=== PATIENT | female | born 1965 | race Caucasian/White ===

== ENCOUNTER 2018-06-20 14:15 | Inpatient (IN) | payer OTHER, MEDICAID ==
[~2018-06-20] VITALS: Ht 160 cm; Wt 67.0 kg
[2018-06-20 14:30] VITALS: BP_SYST 161
[2018-06-20 15:27] LABS: BASOPHILS # (AUTO) 0.1 K/uL (0.0-0.2); BASOPHILS % (AUTO) 0.8 % (0.0-2.0); EOSINOPHILS # (AUTO) 0.8 K/uL (0.0-0.4); EOSINOPHILS % (AUTO) 6.6 % (0.0-4.0); HEMATOCRIT 41.8 % (36-48); HEMOGLOBIN 13.8 g/dL (12.0-16.0); LYMPHOCYTES # (AUTO) 1.6 K/uL (1.0-5.5); LYMPHOCYTES % (AUTO) 13.7 % (20.5-51.5); MEAN CORPUSCULAR HEMOGLOBIN 31 pg (27-31); MEAN CORPUSCULAR HGB CONC 33 % (32-36); MEAN CORPUSCULAR VOLUME 92 fL (79.0-98.0); MONOCYTES # (AUTO) 0.6 K/uL (0.0-1.0); MONOCYTES % (AUTO) 5.2 % (1.7-9.3); NEUTROPHILS # (AUTO) 8.8 K/uL (1.8-7.7); NEUTROPHILS % (AUTO) 73.7 % (40.0-70.0); PLATELET COUNT (AUTO) 392 K/uL (130-430); RED BLOOD CELL COUNT(AUTO) 4.53 MIL/uL (4.2-6.2); RED CELL DISTRIBUTION WIDTH 14.8 % (9.0-15.0); WHITE BLOOD COUNT (AUTO) 11.9 K/uL (4.8-10.8)
[2018-06-20 15:30] LABS: CALCIUM 9.8 mg/dL (8.4-11.0); CREATININE 0.8 mg/dL (0.55-1.30); POTASSIUM 3.4 mmol/L (3.5-5.1)
[2018-06-20 15:34] LABS: ALBUMIN 3.9 g/dL (3.4-4.8); TOTAL BILIRUBIN 0.3 mg/dL (0.0-1.0)
[2018-06-20] MEDS ORDERED: PERMETHRIN 60 GM TOPICAL CREAM (ELIMITE) TP ONE (16:30)
[2018-06-20] MEDS ORDERED: DEXTROSE 50% JECT 50 ML DISP.SYRIN IVP PRN (19:00)
[2018-06-20 20:02] VITALS: BP_SYST 162
[2018-06-21 00:36] VITALS: BP_SYST 160
[2018-06-21 10:00] VITALS: BP_SYST 153
[2018-06-21] MEDS ORDERED: COMMUNICATION ORDER XX ONE (10:30)
[2018-06-21] MEDS ORDERED: PYRETHRINS TP ONE (11:00)
[2018-06-21] MEDS ORDERED: PIPERONYL BUTOXIDE TP ONE (11:00)
[2018-06-21 12:00] VITALS: BP_SYST 154
[2018-06-21 16:00] VITALS: BP_SYST 165
[2018-06-21 19:55] VITALS: BP_SYST 156
[2018-06-22 00:55] VITALS: BP_SYST 169
[2018-06-22] MEDS ORDERED: COMMUNICATION ORDER XX ONE (08:30)
[2018-06-22] MEDS ORDERED: PIPERONYL BUTOXIDE TP ONE (08:45)
[2018-06-22] MEDS ORDERED: PYRETHRINS TP ONE (08:45)
[2018-06-22 09:30] VITALS: BP_SYST 152
[2018-06-22 11:29] VITALS: BP_SYST 164
[2018-06-22] MEDS ORDERED: IVERMECTIN 3 MG TABLET PO ONE (11:30)
[2018-06-22] MEDS ORDERED: PERMETHRIN 60 GM TOPICAL CREAM (ELIMITE) TP ONE (11:30)
[2018-06-22 16:00] VITALS: BP_SYST 155
[2018-06-22 20:18] VITALS: BP_SYST 158
[2018-06-23 07:58] VITALS: BP_SYST 161
[2018-06-23] MEDS ORDERED: ACETAMINOPHEN 325 MG TABLET PO PRN (08:15)
[2018-06-23] MEDS ORDERED: ONDANSETRON HCL 4 MG/2 ML VIAL IVP PRN (08:15)
[2018-06-23] MEDS: ARIPiprazole 5 MG TAB PO SCH (09:10)
[2018-06-23] MEDS: DIPHENHYDRAMINE HCL 12.5 MG/5 ML UDC PO PRN ×2 (09:10→16:46)
[2018-06-23 12:15] VITALS: BP_SYST 153
[2018-06-23 16:00] VITALS: BP_SYST 157
[2018-06-23] MEDS ORDERED: cloNIDine HCL 0.1 MG TABLET PO PRN (17:00)
[2018-06-23] MEDS ORDERED: LISINOPRIL 10 MG TABLET (PRINIVIL) PO ONE (17:00)
[2018-06-23 20:59] VITALS: BP_SYST 157
[2018-06-24] MEDS: INSULIN REGULAR, HUMAN 100 UNITS/ML, 10 ML VIAL (novoLIN R) SUBCUT PRN (00:56)
[2018-06-24 01:10] VITALS: BP_SYST 150
[2018-06-24] MEDS: DIPHENHYDRAMINE HCL 12.5 MG/5 ML UDC PO PRN (03:29)
[2018-06-24 08:00] VITALS: BP_SYST 155
[2018-06-24] MEDS: ARIPiprazole 5 MG TAB PO SCH (09:25)
[2018-06-24] MEDS: LISINOPRIL 10 MG TABLET (PRINIVIL) PO SCH (09:26)
[2018-06-24 11:32] VITALS: BP_SYST 136
[2018-06-24] MEDS ORDERED: DIPH-934 PO (12:51)
[2018-06-24] MEDS ORDERED: CAT.1 PO (12:51)
[2018-06-24] MEDS ORDERED: LISI10TA5 PO (12:51)
[2018-06-24] MEDS ORDERED: ARIP5TAB10 PO (12:51)
[2018-06-24] MEDS ORDERED: SSREG SUBCUT (12:51)
[2018-06-24] MEDS ORDERED: GLUXR500 PO (12:53)
[2018-06-24 15:24] VITALS: BP_SYST 148
[2018-06-24 20:00] VITALS: BP_SYST 137
[2018-06-25 06:41] LABS: CALCIUM 9.4 mg/dL (8.4-11.0); CREATININE 0.75 mg/dL (0.55-1.30); POTASSIUM 3.7 mmol/L (3.5-5.1)
[2018-06-25 06:53] LABS: BASOPHILS # (AUTO) 0.1 K/uL (0.0-0.2); BASOPHILS % (AUTO) 0.8 % (0.0-2.0); EOSINOPHILS # (AUTO) 0.7 K/uL (0.0-0.4); EOSINOPHILS % (AUTO) 7.4 % (0.0-4.0); HEMATOCRIT 37.9 % (36-48); HEMOGLOBIN 13.1 g/dL (12.0-16.0); LYMPHOCYTES # (AUTO) 2.5 K/uL (1.0-5.5); LYMPHOCYTES % (AUTO) 24.9 % (20.5-51.5); MEAN CORPUSCULAR HEMOGLOBIN 32 pg (27-31); MEAN CORPUSCULAR HGB CONC 35 % (32-36); MEAN CORPUSCULAR VOLUME 93 fL (79.0-98.0); MONOCYTES # (AUTO) 0.6 K/uL (0.0-1.0); MONOCYTES % (AUTO) 6.1 % (1.7-9.3); NEUTROPHILS % (AUTO) 60.8 % (40.0-70.0); PLATELET COUNT (AUTO) 321 K/uL (130-430); RED BLOOD CELL COUNT(AUTO) 4.06 MIL/uL (4.2-6.2); RED CELL DISTRIBUTION WIDTH 14.4 % (9.0-15.0); WHITE BLOOD COUNT (AUTO) 9.9 K/uL (4.8-10.8)
[2018-06-25 08:00] VITALS: BP_SYST 130
[2018-06-25] MEDS: LISINOPRIL 10 MG TABLET (PRINIVIL) PO SCH (08:29)
[2018-06-25] MEDS: ARIPiprazole 5 MG TAB PO SCH (08:29)
[2018-06-25 11:35] VITALS: BP_SYST 143
[2018-06-25 15:31] VITALS: BP_SYST 135
[2018-06-25 20:00] VITALS: BP_SYST 144
[2018-06-25] MEDS: INSULIN REGULAR, HUMAN 100 UNITS/ML, 10 ML VIAL (novoLIN R) SUBCUT PRN (23:55)
[2018-06-26 00:49] VITALS: BP_SYST 143
[2018-06-26] MEDS: INSULIN REGULAR, HUMAN 100 UNITS/ML, 10 ML VIAL (novoLIN R) SUBCUT PRN ×2 (05:28→23:53)
[2018-06-26] MEDS: ARIPiprazole 5 MG TAB PO SCH (08:48)
[2018-06-26 08:49] VITALS: BP_SYST 143
[2018-06-26] MEDS: LISINOPRIL 10 MG TABLET (PRINIVIL) PO SCH (08:49)
[2018-06-26 11:23] VITALS: BP_SYST 138
[2018-06-26 15:23] VITALS: BP_SYST 130
[2018-06-26 16:24] VITALS: BP_SYST 145
[2018-06-26 20:00] VITALS: BP_SYST 138
[2018-06-27 01:40] VITALS: BP_SYST 143
[2018-06-27] MEDS: INSULIN REGULAR, HUMAN 100 UNITS/ML, 10 ML VIAL (novoLIN R) SUBCUT PRN (06:04)
[2018-06-27 09:28] VITALS: BP_SYST 145
[2018-06-27] MEDS: ARIPiprazole 5 MG TAB PO SCH (09:28)
[2018-06-27] MEDS: LISINOPRIL 10 MG TABLET (PRINIVIL) PO SCH (09:28)
[2018-06-27 11:21] VITALS: BP_SYST 135
== END 2018-06-27 11:30 | DRG 607 ==
LOC: SED 14:15 → SMU 17:08
PROVIDERS: ADMIT Internal Medicine Hospice and Palliative Medicine; ATTEND Internal Medicine Hospice and Palliative Medicine
DX: B86 Scabies (principal); F31.9 Bipolar disorder, unspecified; I10 Essential (primary) hypertension; B85.0 Pediculosis due to Pediculus humanus capitis; E11.9 Type 2 diabetes mellitus without complications; L29.9 Pruritus, unspecified; Z90.710 Acquired absence of both cervix and uterus; Z91.19 Patient's noncompliance with other medical treatment and regimen; Z88.0 Allergy status to penicillin; Z90.49 Acquired absence of other specified parts of digestive tract
CPT/HCPCS: 36415; 80048; 80053; 82962; 83036; 84443-TC; 85025; 87210-TC; 99285; J1815

== ENCOUNTER 2024-04-23 16:08 | Emergency (ER) | payer BC, MEDICAID, OTHER ==
[~2024-04-23] VITALS: Ht 154.9 cm; Wt 81.6 kg
[~2024-04-23 16:08] MED LIST: ARIP5TAB10 PO; CAT.1 PO; DIPH-934 PO; GLUXR500 PO; LISI10TA29 PO; SSREG SUBCUT
[2024-04-23 16:15] VITALS: BP_SYST 171; PULSE 90; RESP 18; TEMP 98; O2SAT 96
[2024-04-23] MEDS: cloNIDine HCL 0.1 MG TABLET PO ONE (17:05)
[2024-04-23 17:22] LABS: BASOPHILS # (AUTO) 0.1 K/uL (0.0-0.2); BASOPHILS % (AUTO) 1.1 % (0.0-2.0); EOSINOPHILS # (AUTO) 0.4 K/uL (0.0-0.4); EOSINOPHILS % (AUTO) 3.6 % (0.0-4.0); HEMATOCRIT 35.9 % (36-48); HEMOGLOBIN 11.9 g/dL (12.0-16.0); LYMPHOCYTES # (AUTO) 2.2 K/uL (1.0-5.5); LYMPHOCYTES % (AUTO) 17.9 % (20.5-51.5); MEAN CORPUSCULAR HEMOGLOBIN 28 pg (27-31); MEAN CORPUSCULAR HGB CONC 33 % (32-36); MEAN CORPUSCULAR VOLUME 86 fL (79.0-98.0); MONOCYTES # (AUTO) 0.8 K/uL (0.0-1.0); MONOCYTES % (AUTO) 6.9 % (1.7-9.3); NEUTROPHILS # (AUTO) 8.5 K/uL (1.8-7.7); NEUTROPHILS % (AUTO) 70.5 % (40.0-70.0); PLATELET COUNT (AUTO) 263 K/uL (130-430); RED BLOOD CELL COUNT(AUTO) 4.18 MIL/uL (4.2-6.2); RED CELL DISTRIBUTION WIDTH 16.4 % (9.0-15.0); WHITE BLOOD COUNT (AUTO) 12.1 K/uL (4.8-10.8)
[2024-04-23 17:27] LABS: BILIRUBIN,URINE NEGATIVE (NEGATIVE); BLOOD, URINE 1+ (NEGATIVE); CLARITY/URINE CLEAR (CLEAR); COLOR,URINE YELLOW (YELLOW); GLUCOSE,URINE 3+ (NEGATIVE); KETONES,URINE NEGATIVE (NEGATIVE); NITRITE, URINE NEGATIVE (NEGATIVE); PH,URINE 5.5 (5.0-8.0); PROTEIN URINE NEGATIVE (NEGATIVE); UROBILINOGEN,URINE 0.2 (0.2-1.0)
[2024-04-23 17:31] LABS: ALANINE AMINOTRANSFERASE 33 U/L (12-78); ALBUMIN 3.2 g/dL (3.4-4.8); ANION GAP 8 (5-15); ASPARTATE AMINOTRANSFERASE 20 U/L (10-37); BILIRUBIN,DIRECT 0.1 mg/dL (0.0-0.3); CALCIUM 9.1 mg/dL (8.4-11.0); CARBON DIOXIDE 24 mmol/L (23-29); CHLORIDE 102 mmol/L (98-107); GFR AFRICAN AMERICAN 54 mL/min (>90); GLUCOSE 264 mg/dL (74-106); POTASSIUM 4.2 mmol/L (3.5-5.1); SODIUM SERUM 134 mmol/L (136-145); TOTAL BILIRUBIN 0.3 mg/dL (0.0-1.0); TOTAL PROTEIN, SERUM 6.8 g/dL (6.4-8.3); UREA NITROGEN, BLOOD 21 mg/dL (8-21)
[2024-04-23 17:34] LABS: LEUKOCYTE ESTERASE ,URINE 2+ (NEGATIVE)
[2024-04-23 17:35] LABS: ACETAMINOPHEN < 1 ug/mL (1-30); GFR NON AFRICAN-AMERICAN 45 mL/min (>90)
[2024-04-23 17:35] LABS: BACTERIA,URINE FEW /HPF (None Seen); RBC,URINE NONE SEEN /HPF (0-3); WBC,URINE 20-50 /HPF (0-3)
[2024-04-23 17:36] LABS: MUCUS,URINE None Seen /LPF (None Seen)
[2024-04-23 17:36] LABS: ALCOHOL, BLOOD < 3 mg/dL (<10)
[2024-04-23 17:38] LABS: SALICYLATE 2 mg/dL (3-30)
[2024-04-23] MEDS ORDERED: LISI10TA29 PO (18:14)
[2024-04-23] MEDS ORDERED: LEVO750T64 PO (18:14)
[2024-04-23] MEDS: levoFLOXacin 500 MG TABLET PO ONE (18:33)
[2024-04-23 19:06] VITALS: BP_SYST 164; PULSE 81; RESP 18; TEMP 98; O2SAT 98
== END 2024-04-23 19:06 | disposition home or self-care (01) ==
LOC: SED 16:08
DX: I10 Essential (primary) hypertension (principal); N39.0 Urinary tract infection, site not specified; F41.9 Anxiety disorder, unspecified; E11.9 Type 2 diabetes mellitus without complications; Z90.49 Acquired absence of other specified parts of digestive tract; Z98.890 Other specified postprocedural states; Z88.0 Allergy status to penicillin; Z79.899 Other long term (current) drug therapy; Z79.2 Long term (current) use of antibiotics; Z79.4 Long term (current) use of insulin
CPT/HCPCS: 99284; 80076; 80048; 81001; 85025; 87086; 36415; 93005; G0482; G0480; G0481; 81000; 81015